=== PATIENT | female | born 1970 | race Caucasian/White ===

== ENCOUNTER 2016-05-19 | Emergency (ER) | payer BC ==
[2016-05-19 15:41] LABS: HEMOGLOBIN 12.8 gm/dl (12.3-15.3); RED BLOOD COUNT 3.94 M/UL (4.00-5.10); WHITE BLOOD COUNT 8.2 K/UL (4.5-11.0)
[2016-05-19 16:05] LABS: BUN/CREATININE RATIO 7 (0-10)
== END 2016-05-19 17:04 | disposition home or self-care (01) ==
PROVIDERS: Family Medicine
DX: R07.89 Other chest pain (principal); R06.02 Shortness of breath; M79.7 Fibromyalgia; M32.9 Systemic lupus erythematosus, unspecified; G43.909 Migraine, unspecified, not intractable, without status migrainosus; Z88.1 Allergy status to other antibiotic agents; Z88.5 Allergy status to narcotic agent; Z88.8 Allergy status to other drugs, medicaments and biological substances; Z79.899 Other long term (current) drug therapy
CPT/HCPCS: 36415; 71010; 80053; 82550; 82553; 83874; 84484; 85025; 85379; 93005; 99285

== ENCOUNTER → 2016-05-25 | Outpatient (CLI) | payer BC | LOC: HEART 5 08:26 | DX: R07.9 Chest pain, unspecified (principal); R06.00 Dyspnea, unspecified | CPT/HCPCS: 78452; A9502; J2785 ==

== ENCOUNTER → 2016-11-30 | Outpatient (CLI) | payer BC | LOC: KOH-I 11:20 | DX: J30.1 Allergic rhinitis due to pollen (principal); H10.45 Other chronic allergic conjunctivitis; R05 Cough; J98.9 Respiratory disorder, unspecified | CPT/HCPCS: 71020 ==

== ENCOUNTER → 2020-05-16 | Outpatient (CLI) | payer BC, OTHER ==
[2020-05-16 10:41] LABS: HEMOGLOBIN 12.6 gm/dl (12.3-15.3); RED BLOOD COUNT 3.85 M/UL (4.00-5.10); WHITE BLOOD COUNT 7.8 K/UL (4.5-11.0)
[2020-05-16 11:05] LABS: BUN/CREATININE RATIO 13 (0-10)
== END ==
LOC: LAB 09:54
PROVIDERS: Orthopaedic Surgery
DX: Z01.818 Encounter for other preprocedural examination (principal); R94.31 Abnormal electrocardiogram [ECG] [EKG]
CPT/HCPCS: 36415; 80053; 85027; 93005

== ENCOUNTER → 2020-08-07 | Outpatient (CLI) | payer BC, OTHER | LOC: KOH-I 13:08 | DX: R05 Cough (principal) | CPT/HCPCS: 71046 ==

== ENCOUNTER → 2020-09-09 | Outpatient (CLI) | payer BC, OTHER | LOC: EMI 15:00 | DX: M54.81 Occipital neuralgia (principal) | CPT/HCPCS: 70551 ==

== ENCOUNTER → 2020-12-10 | Outpatient (CLI) | payer BC | LOC: KOH-I 16:00 | DX: M79.642 Pain in left hand (principal) | CPT/HCPCS: 73130 ==

== ENCOUNTER → 2021-02-19 | Outpatient (CLI) | payer BC | LOC: KOH-I 15:55 | DX: R07.9 Chest pain, unspecified (principal) | CPT/HCPCS: 71046 ==

== ENCOUNTER → 2021-02-20 | Outpatient (CLI) | payer BC | LOC: HEART 5 07:45 | DX: R07.9 Chest pain, unspecified (principal) | CPT/HCPCS: 78452; A9502 ==

== ENCOUNTER → 2021-10-03 | Outpatient (CLI) | payer BC | LOC: EXRD 09:10 | DX: R74.8 Abnormal levels of other serum enzymes (principal) | CPT/HCPCS: 76705 ==